=== PATIENT | female | born 1970 | race Caucasian/White ===

== ENCOUNTER 2020-06-12 22:39 | Emergency (ER) | payer BC ==
[~2020-06-12] VITALS: Ht 175.3 cm; Wt 66.0 kg
[~2020-06-12 22:39] MED LIST: CIPROFLOXACN500 MG PO; CO Q-10300 MG PO; ESTER-C500 M2 PO; FISH OIL1000 MG PO; FLEXERIL PO; FLEXERIL5 M1 PO; IMITREX50 M1 PO; LOESTRIN 24 FE OR; LOESTRIN 24 PO; LORTAB 10 PO; NAPROSYN500 MG PO; NITROFUR MAC100 MG PO; PYRIDIUM200 MG PO; TORADOL PO; YAZ1 TAB OR; [UNRECOGNIZED DRUG - OTHER] PO
[2020-06-12 23:37] LABS: IMMATURE GRANULOCYTES 0.3 % (0.0-5.0); MEAN CORPUSCULAR HGB CONC 32.3 g/dL CAL (32.0-36.0); NEUT# 3.91 thou/uL (2.00-7.15); RED BLOOD COUNT 4.49 mill/uL (4.20-5.60); RED CELL DISTRI WIDTH 12.6 % (11.5-15.5)
[2020-06-12 23:38] LABS: HEMATOCRIT 40.3 % (37.0-47.0); MEAN CELL VOLUME 89.8 fL CALC (80.0-100.0); URINE BILIRUBIN - DIPSTICK NEGATIVE (NEGATIVE); URINE BLOOD DIPSTICK NEGATIVE (NEGATIVE); URINE COLOR YELLOW; URINE GLUCOSE - DIPSTICK NEGATIVE (NEGATIVE); URINE KETONE NEGATIVE (NEGATIVE); URINE LEUK ESTERASE NEGATIVE (NEGATIVE); URINE NITRITE - DIPSTICK NEGATIVE (Negative); URINE PH 6.5 (4.5-8.0); URINE PROTEIN - DIPSTICK NEGATIVE (NEG-TRACE); URINE UROBILINOGEN - DIPSTICK 0.2 E.U./dL (0.2)
[2020-06-12 23:50] LABS: ALKALINE PHOSPHATASE 81 u/l (38-126); ANION GAP 11 (6-22 (CALC)); BUN 18 mg/dL (7-17); BUN/CREATININE RATIO 24 (12-20 (CALC)); CARBON DIOXIDE 30 mmol/l (22-30); CHLORIDE 102 mmol/l (95-108); CREATININE 0.7 mg/dL (0.5-1.0); GFR > 60 ML/MIN (>=60 (CALC)); GFR FOR AFR.AMER. > 60 ML/MIN (>=60 (CALC)); POTASSIUM 3.9 mmol/l (3.5-5.1); SGOT/AST 27 u/l (14-36); SODIUM 139 mmol/l (137-146)
[2020-06-13 00:01] LABS: ALBUMIN 4.5 g/dL (3.2-5.0); BILIRUBIN, TOTAL 0.5 mg/dL (0.0-1.4); TOTAL PROTEIN 7.4 g/dL (6.3-8.2)
[2020-06-13 00:03] LABS: MYOGLOBIN 22 ng/mL (0 - 62)
[2020-06-13 01:30] VITALS: BP 111/69
== END 2020-06-13 01:30 | disposition home or self-care (01) | DRG 310 ==
LOC: ED 22:39
PROVIDERS: Emergency Medicine
DX: R00.2 Palpitations (principal); I48.91 Unspecified atrial fibrillation

== ENCOUNTER 2022-03-21 06:59 | Emergency (ER) | payer BC ==
[2022-03-21] VITALS (11 sets, daily range): BP systolic 114–140; BP diastolic 78–99
[~2022-03-21] VITALS: Ht 175.3 cm; Wt 81.8 kg
[2022-03-21 07:36] LABS: HEMATOCRIT 41.1 % (37.0-47.0); HEMOGLOBIN 13.4 g/dl (12.0-16.0); IMMATURE GRANULOCYTES 0.2 % (0.0-5.0); MEAN CELL VOLUME 91.7 fL CALC (80.0-100.0); MEAN CORPUSCULAR HGB 29.9 pG CALC (26.0-32.0); MEAN CORPUSCULAR HGB CONC 32.6 g/dL CAL (32.0-36.0); NEUT# 2.98 thou/uL (2.00-7.15); RED BLOOD COUNT 4.48 mill/uL (4.20-5.60); RED CELL DISTRI WIDTH 12.6 % (11.5-15.5)
[2022-03-21 08:00] LABS: ALBUMIN 4.6 g/dL (3.2-5.0); ALKALINE PHOSPHATASE 90 u/l (38-126); ANION GAP 11 (6-22 (CALC)); BUN 9 mg/dL (7-17); BUN/CREATININE RATIO 13 (12-20 (CALC)); CARBON DIOXIDE 31 mmol/l (22-30); CHLORIDE 103 mmol/l (95-108); CREATININE 0.7 mg/dL (0.5-1.0); GFR FOR AFR.AMER. > 60 ML/MIN (>=60 (CALC)); GFR OTHER RACES > 60 ML/MIN (>=60 (CALC)); POTASSIUM 4.2 mmol/l (3.5-5.1); SGOT/AST 23 u/l (14-36); SODIUM 142 mmol/l (137-146); TOTAL PROTEIN 7.4 g/dL (6.3-8.2)
[2022-03-21 08:02] LABS: BILIRUBIN, TOTAL 0.2 mg/dL (0.0-1.4)
== END 2022-03-21 09:33 | disposition home or self-care (01) | DRG 313 ==
LOC: ED 06:59
PROVIDERS: Family Medicine
DX: R07.9 Chest pain, unspecified (principal)